=== PATIENT | male | born 1965 | race Caucasian/White ===

== ENCOUNTER 2017-05-10 19:19 | Emergency (ER) | payer MEDICAID, OTHER ==
[~2017-05-10 19:19] MED LIST: ATENOLOL100 MG PO; PRILOSEC20 MG PO; VITAMIN-D1000 IU PO
[2017-05-10 21:15] LABS: PLATELET COUNT 198 x10^3mcL (130-400)
[2017-05-10 21:19] LABS: RED CELL DISTRIBUTION WIDTH 24.6 % (11.5-14.5)
[2017-05-10 21:24] LABS: CALCIUM 8.7 mg/dL (8.5-10.1); CARBON DIOXIDE 25.5 mmol/L (21-32); CHLORIDE SERUM 98 mmol/L (98-107); CREATININE SERUM 0.8 mg/dL (0.7-1.3); GFR1 > 60 mL/min; GLUCOSE SERUM 102 mg/dL (74-106); POTASSIUM SERUM 3.6 mmol/L (3.5-5.1); SODIUM SERUM 136 mmol/L (136-145)
[2017-05-10 21:29] LABS: ALBUMIN 3.5 g/dL (3.4-5.0); ALKALINE PHOSPHATASE 145 U/L (46-116); ALT/SGPT 41 U/L (16-63); AST/SGOT 39 U/L (15-37); BILIRUBIN TOTAL 0.2 mg/dL (0.20-1.00); TOTAL PROTEIN, SERUM 8.5 g/dL (6.4-8.2)
[2017-05-10 21:41] LABS: BAND NEUTROPHIL 2 % (0-10); BASOPHIL 0 % (0-2); MONOCYTE 13 % (0-7); SEGMENTED NEUTROPHILS 60 % (37-75)
[2017-05-10 21:42] LABS: acanthocyte (spur cell) 1+; rbc morphology (normal/abnorm) ABNORMAL (NORMAL); target cell (codocyte) 1+
[2017-05-10 21:43] LABS: PLATELET MORPHOLOGY PLATELETS NORMAL; ovalocyte/elliptocyte 1+; schistocyte (helmet cell) 1+
[2017-05-10 22:36] LABS: microscopic required? NO
[2017-05-10 22:51] LABS: UA SPECIFIC GRAVITY <=1.005 (1.005-1.035); urine erythrocyte NEGATIVE (NEGATIVE)
[2017-05-10 23:15] LABS: AMPHETAMINE QUAL UR NONE DETECTED (NEG <=1000)
[2017-05-11 00:50] VITALS: BP 127/75
== END 2017-05-11 00:50 | disposition home or self-care (01) ==
LOC: ED 19:19
PROVIDERS: Emergency Medicine
DX: S10.96XA Insect bite of unspecified part of neck, initial encounter (principal); I10 Essential (primary) hypertension; F10.10 Alcohol abuse, uncomplicated; Z79.899 Other long term (current) drug therapy; W57.XXXA Bitten or stung by nonvenomous insect and other nonvenomous arthropods, initial encounter; Y93.89 Activity, other specified; Y92.89 Other specified places as the place of occurrence of the external cause; Y99.8 Other external cause status
CPT/HCPCS: 83880; J0696; J7030; J7512

== ENCOUNTER 2018-12-23 18:55 | Inpatient (IN) | payer OTHER ==
[~2018-12-23] VITALS: Ht 180.3 cm; Wt 86.0 kg
[2018-12-23 19:04] VITALS: Ht 180.3 cm; Wt 86.0 kg
--- NOTE | 2018-12-23 19:18 | NUR ---
PT PRESENTS TO THE ED TODAY WITH C/C OF JAUNDICE. PT IS A CHRONIC ALCOHOLIC, REPORTS HIS LAST DRINK WAS X5 HOURS AGO, DRINKS APPROXIMATELY 4 32OZ BEERS REGULARLY. PT REPORTS NOTICING YELLOWING OF SKIN X2 WEEKS AGO, PROGRESSIVELY WORSENING. ABDOMEN MODERATELY DISTENDED BUT SOFT. BILATERAL PITTING EDEMA NOTED TO LOWER EXTREMITIES, WORSE ON RIGHT LOWER EXTREMITY. PT ALSO C/O BLEDDING WITH BMS X3 DAYS. PT IS AAOX4, RESP E/U, SPEAKING IN FULL COMPLETE SENTENCES, NAD NOTED. GIRLFRIEND AND SISTER AT BEDSIDE.
--- NOTE | 2018-12-23 19:20 | NUR ---
MSE COMPLETED BY DR OSHEA.
--- NOTE | 2018-12-23 19:49 | NUR ---
SPOKE WITH WALDEMAR IN PHARMACY, LET HIM KNOW THAT WE DON'T HAVE ALL NECESSARY MEDICATIONS IN [place] TO MAKE BANANA BAG, STATES THAT HE WILL MAKE IT FOR ME.
--- NOTE | 2018-12-23 20:04 | NUR ---
PT MEDICATED PER MD ORDER, PT VERBALIZED UNDERSTANDING OF MEDICATIONS PRIOR TO ADMINISTRATION. GIRLFRIEND AT BEDSIDE. CALL LIGHT IN REACH.
[2018-12-23 20:29] LABS: CALCIUM 7.8 mg/dL (8.5-10.1); CARBON DIOXIDE 21.9 mmol/L (21-32); CHLORIDE SERUM 100 mmol/L (98-107); CREATININE SERUM 0.8 mg/dL (0.7-1.3); GFR1 > 60 mL/min; GLUCOSE SERUM 115 mg/dL (74-106); POTASSIUM SERUM 3.2 mmol/L (3.5-5.1); SODIUM SERUM 134 mmol/L (136-145)
--- NOTE | 2018-12-23 20:31 | NUR ---
CALLED PHARMACY IN [facility] TO STATUS OF BANANA BAG. MASTER AT [facility] IS CURRENTLY OUT OF THIAMINE, DR OSHEA MADE AWARE.
[2018-12-23 20:33] LABS: ALKALINE PHOSPHATASE 282 U/L (46-116); ALT/SGPT 33 U/L (16-63); AST/SGOT 126 U/L (15-37); LIPASE 605 IU/L (73-393); TOTAL PROTEIN, SERUM 7.9 g/dL (6.4-8.2)
--- NOTE | 2018-12-23 20:34 | NUR ---
PER DR OSHEA, HOLD BANANA BAG AT THIS TIME.
[2018-12-23 20:35] LABS: ALBUMIN 1.5 g/dL (3.4-5.0)
--- NOTE | 2018-12-23 20:35 | NUR ---
PER DR OSHEA, HOLD BANANA BAG MED ORDER AT THIS TIME.
[2018-12-23 20:38] LABS: BILIRUBIN TOTAL 15.6 mg/dL (0.20-1.00)
[2018-12-23 20:39] LABS: PLATELET COUNT 187 x10^3mcL (130-400); RED CELL DISTRIBUTION WIDTH 15.9 % (11.5-14.5)
[2018-12-23 20:47] LABS: BAND NEUTROPHIL 3 % (0-10); BASOPHIL 0 % (0-2); MONOCYTE 6 % (0-7); SEGMENTED NEUTROPHILS 76 % (37-75)
[2018-12-23 20:48] LABS: rbc morphology (normal/abnorm) ABNORMAL (NORMAL)
--- NOTE | 2018-12-23 21:09 | NUR ---
PT MEDICATED PER ORDER, PT VERBALIZED UNDERSTANDING OF MEDICATION PRIOR TO ADMINISTRATION. PT SITTING IN GURNEY, GIRLFRIEND AT BEDSIDE, WATCHING TV. RESP E/U, NAD NOTED.
[2018-12-23] MEDS ORDERED: MULTI-VITAMINS1 TAB PO (21:22)
[2018-12-23] MEDS ORDERED: FERROUS SULFAT325 M2 PO (21:22)
[2018-12-23 21:23] LABS: microscopic required? NO
--- NOTE | 2018-12-23 21:27 | NUR ---
PT TO CT SCAN VIA WC, NAD NOTED.
[2018-12-23 21:31] LABS: UA SPECIFIC GRAVITY <=1.005 (1.005-1.035); urine erythrocyte NEGATIVE (NEGATIVE)
--- NOTE | 2018-12-23 22:00 | NUR ---
PT LAYING IN BED, WATCHING TV, AWAKE AND ALERT, RESP E/U, NAD NOTED. GIRLFRIEND AT BEDSIDE.
--- NOTE | 2018-12-23 23:36 | NUR ---
PER DR OSHEA, NEED BLOOD CULTURES PRIOR TO ABX. AWAITING NEW ORDER.
--- NOTE | 2018-12-23 23:58 | NUR ---
IV ZOSYN STARTED PER ORDER POST BLOOD CULTURE DRAW. PT VERBALIZED UNDERSTANDING. PT LAYING IN GURNEY, WATCHING TV, NAD NOTED.
[2018-12-24] VITALS (7 sets, daily range): BP systolic 116–158; BP diastolic 65–84
--- NOTE | 2018-12-24 00:37 | NUR ---
REPORT CALLED TO KEITH KAT ON TELE TO ASSUME CARE FOR PT.
[2018-12-24 00:54] LABS: PLATELET COUNT 192 x10^3mcL (130-400); RED CELL DISTRIBUTION WIDTH 16.1 % (11.5-14.5)
--- NOTE | 2018-12-24 00:55 | NUR ---
RECEIVED PT FROM ED VIA RICARDO. ORIENTED PT TO ROOM AND SURROUNDINGS. IV NOTED TO RAC PATENT AND INTACT. TELE 7 PLACED ON PT READING STA. INSTRUCTED PT ON THE USE OF CALL LIGHT FOR ASSISTANCE. ENDORSED PT TO PRIMARY NURSE JASMYN
[2018-12-24 01:07] LABS: T3 TOTAL 0.78 ng/mL
[2018-12-24 01:15] LABS: SEGMENTED NEUTROPHILS 90 % (37-75)
[2018-12-24 01:16] LABS: BAND NEUTROPHIL 0 % (0-10); BASOPHIL 1 % (0-2); rbc morphology (normal/abnorm) ABNORMAL (NORMAL)
[2018-12-24 01:17] LABS: PLATELET MORPHOLOGY PLATELETS NORMAL
--- NOTE | 2018-12-24 01:22 | NUR ---
PT IS RESTING IN BED. A/O x4. DENIES ANY DISTRESS. ON TELE #7, ST. DENIES ANY CHEST PAIN. EDEMA NOTED ON RLE. LUNGS CLEAR IN ALL FEILDS. ON RA, DENIES ANY SOB. ABD DISTENDED AND SOFT. PT C/O DIARRHEA WITH TRACE OF BLOOD. EXPALINED TO PT A SAMPLE NEEDS TO BED COLLECTED. PT STATED UNDERSTANING. IV ON RAC INTACT AND PATENT. ON SZ PRECAUTION. AT BEDSIDE. BED AT LOWEST SETTING. CALL LIGHT WITHIN REACH. WILL CONTINUE TO MONITOR.
[2018-12-24 01:42] LABS: FREE T4 1.4 ng/dL (0.76-1.46); FREE THYROXINE INDEX 2.6 ug/dL (1.4-4.5); T4(THYROXINE) 6.6 ug/dL (4.7-13.3)
[2018-12-24 01:52] LABS: PHOSPHOROUS 2.8 mg/dL (2.5-4.9)
[2018-12-24 01:57] LABS: CHOLESTEROL/HDL RATIO 12.4
--- NOTE | 2018-12-24 02:15 | NUR ---
PT EYES CLOSED. AROUSED EASILY, DENIES ANY CHEST PAIN. RN CLINICAL QUALITY SHOWS ST 102/MIN.
--- NOTE | 2018-12-24 02:16 | NUR ---
DR. SOTO MADE AWARE OF PTS TROP 0.123.
[2018-12-24 02:19] LABS: AMPHETAMINE QUAL UR NONE DETECTED (See below)
--- NOTE | 2018-12-24 06:36 | NUR ---
PT RESTING IN BED. SLIGHT TREMORS NOTED. IV INTACT AND PATENT. NO ACUTE EVENT OCCURED DURING SHIFT. SZ PRECATUTION IN PLACE. PT HAS URGENCY WHEN VOIDING. DARK YELLOW WITH STRONG ODOR NOTED. BED AT LOWEST SETTING. CALL LIGHT WITHIN REACH. WILL ENRDORSE TO AM NURSE.
--- NOTE | 2018-12-24 07:20 | NUR ---
PT IN LOW FOWLERS, DENIES PAIN, MILD TREMORS TO BUE. PT ALERT, AWAKE, ORIENTEDx4. EFFORTLESS BREATHING ON ROOM AIR. IV PATENT TO rAC#20 INFUSING WELL NS AT 50ML/HR. BED IN LOWEST POSITION, CALL LIGHT WITHIN REACH.
[2018-12-24 07:32] LABS: CALCIUM 7.4 mg/dL (8.5-10.1); CARBON DIOXIDE 21.6 mmol/L (21-32); CHLORIDE SERUM 105 mmol/L (98-107); CREATININE SERUM 0.8 mg/dL (0.7-1.3); GFR1 > 60 mL/min; GLUCOSE SERUM 93 mg/dL (74-106); LIPASE 377 IU/L (73-393); MAGNESIUM 1.6 mg/dL (1.8-2.4); PHOSPHOROUS 2.9 mg/dL (2.5-4.9); POTASSIUM SERUM 3.6 mmol/L (3.5-5.1); SODIUM SERUM 138 mmol/L (136-145)
--- NOTE | 2018-12-24 07:52 | NUR ---
Nutrition Note Nutrition Consult received for severe malnutrition w/ EtOH abuse. Pt admitted with PNA, Pancreatitis per H&P documentation. Pt does not meet high risk criteria per nutrition care policy and standards. Pt will be assessed as moderate risk and initial assessment due 12/27-12/29.
[2018-12-24 09:16] LABS: PLATELET COUNT 195 x10^3mcL (130-400); RED CELL DISTRIBUTION WIDTH 16.1 % (11.5-14.5)
--- NOTE | 2018-12-24 10:14 | NUR ---
MEDICINE TEAM IN TO SEE PT. DISCUSSING PLAN OF CARE. AT BEDSIDE.
--- NOTE | 2018-12-24 12:30 | NUR ---
PT SLEEPING AT MOMENT. EFFORTLESS BREATHING ON ROOM AIR. NO S/S OF PAIN AT MOMENT. CALL LIGHT WITHIN REACH.
[2018-12-24 14:19] LABS: BAND NEUTROPHIL 5 % (0-10); BASOPHIL 0 % (0-2); MONOCYTE 3 % (0-7); SEGMENTED NEUTROPHILS 88 % (37-75)
[2018-12-24 14:20] LABS: PLATELET MORPHOLOGY PLATELETS DECREASED; rbc morphology (normal/abnorm) ABNORMAL (NORMAL); target cell (codocyte) 2+
--- NOTE | 2018-12-24 18:55 | NUR ---
PT IN FOWLERS, SLEEPING AT MOMENT. GENERALIZED JAUNDICE. PT BREATHING EFFORTLESS ON ROOM AIR. IV PATENT TO RAC#20 CALL LIGHT WITHIN REACH.
--- NOTE | 2018-12-24 19:30 | NUR ---
PT A/O x4. ON TELE #[address] DENIES ANY CHEST PAIN OR PRESSURE. PULSES ARE PRESENT. EDEMA NOTED ON RLE. LUNGS CLEAR IN ALL FEILDS. ON RA, DENIES ANY SOB. EQAUL CHEST RISE AND FALL. BOWEL SOUNDS PRESENT. ABD IS DISTENDED BUT SOFT. DENIES ANY ABD PAIN OR DISCOMFORT. PT AWARE OF STOOL SAMPLE NEEDED. SLIGHT TREMORS NOTED ON HANDS. BRUSING NOTED ON LLE AND RUE. PT IS [place]. IV ON RAC INTACT AND PATENT. FLUIDS RUNNING PER EMAR. NO SIGN OF REDNESS OR INFILTRATION NOTED. SZ IN PLACE. BED IS AT LOWEST SETTING. CALL LIGHT WITHIN REACH. WILL CONTINUE TO [facility].
--- NOTE | 2018-12-24 20:50 | NUR ---
PT HAS HIGH TEMP. COOLING MEASURES STARTED. WILL RECHECK TEMP.
--- NOTE | 2018-12-24 21:39 | NUR ---
PT TEMP IS STILL HIGH AT 101. COOLING MEASURES DID NOT WORK WILL GIVE PRN MEDICATION PER EMAR.
--- NOTE | 2018-12-25 01:53 | NUR ---
PT RESTING IN BED WITH BOTH EYES CLOSED. BREATHING EVEN AND UNLBORED. NO SIGN OF DISTRESS NOTED. IV INTACT AND PATENT. BED AT LOWEST SETTING. SZ PRECAUTION IN PLACE. CALL LIGHT WITHIN REACH. WILL CONTINUE TO MONITOR.
[2018-12-25 05:53] VITALS: BP 139/74
--- NOTE | 2018-12-25 06:23 | NUR ---
PT IS RESTING IN A CHAIR. NO ACUTE EVENT OCCURED DURING SHIFT. STILL NO BM. NEW LINEN WAS PROVIDED. PT STILL HAS TREMORS. IV INTACT AND PATENT. DIP UNIT OPERATOR IN ROOM. WILL ENDORSE TO AM NURSE.
[2018-12-25 06:42] LABS: PLATELET COUNT 183 x10^3mcL (130-400)
[2018-12-25 06:51] LABS: RED CELL DISTRIBUTION WIDTH 17.6 % (11.5-14.5)
[2018-12-25 06:55] LABS: CALCIUM 7.8 mg/dL (8.5-10.1); CARBON DIOXIDE 23.9 mmol/L (21-32); CHLORIDE SERUM 106 mmol/L (98-107); CREATININE SERUM 0.8 mg/dL (0.7-1.3); GFR1 > 60 mL/min; GLUCOSE SERUM 94 mg/dL (74-106); LIPASE 437 IU/L (73-393); MAGNESIUM 1.5 mg/dL (1.8-2.4); PHOSPHOROUS 2.7 mg/dL (2.5-4.9); POTASSIUM SERUM 3.3 mmol/L (3.5-5.1); SODIUM SERUM 139 mmol/L (136-145)
--- NOTE | 2018-12-25 07:30 | NUR ---
PT ENDORSE TO ME THIS MORNING. LAYIN IN BED RESTING. AA/O X4 /SZ PREC INPLACE. BREATHING EVEN AND UNLABORED ON RA/ LUNGS CLEAR. TELE 7 NSR NOTED, HR 91. DENIES ANY CP OR PRESSURE. BOWEL SOUNDS ACTIVE IN ALL FOUR QUADS, DENIES ANY ABD PAIN OR DISCOMFORT AT THIS TIME. GEN WEAKNESS NOTED. JAUNDICE NOTED, BRUISES TO LLE AND RUE NOTED. IV TO THE RAC INFUSING AT 50 ML/HR/ NS, NO REDNESS OR SWELLING NOTED. CALL LIGHT IN REACH. BED IN LOW POSITION. WILL CONTINUE PLAN OF CARE.
--- NOTE | 2018-12-25 08:58 | NUR ---
PT C/O LIGHT TREMORS AND FEELING ANXIOUS, MEDICATED PER EMAR WITH ATIVAN. WILL CONTINUE TO [id number].
[2018-12-25 09:15] VITALS: BP 145/76
[2018-12-25 10:48] LABS: ATYPICAL LYMPH 3 %; BAND NEUTROPHIL 8 % (0-10); BASOPHIL 0 % (0-2); MONOCYTE 2 % (0-7); SEGMENTED NEUTROPHILS 82 % (37-75)
[2018-12-25 10:49] LABS: PLATELET MORPHOLOGY PLATELETS DECREASED; rbc morphology (normal/abnorm) ABNORMAL (NORMAL); target cell (codocyte) 1+
--- NOTE | 2018-12-25 12:12 | NUR ---
PT C/O FEELING A BIT ANXIOUS AND FEELS LIKE TREMORS ARE BACK. WILL MEDICATED PER EMAR WITH ATIVAN. WILL CONTINUE TO MONITOR.
[2018-12-25 12:38] VITALS: BP 139/74
--- NOTE | 2018-12-25 12:54 | NUR ---
PT HAS LOW GRADE FEVER 100.2, MEDICATED PER EMAR. COOLING MEASURES APPLIED. WILL CONTINUE TO MONITOR.
--- NOTE | 2018-12-25 17:40 | NUR ---
PT STATING FEELING OF ANXIOUNESS AND TREMORS NOTED TO UPPER EXT. WILL MEDICATED PER EMAR WITH ATIVAN. WILL CONTINUE TO MONITOR. PT GIRLFRIEND AT BEDSIDE.
[2018-12-25 18:06] VITALS: BP 129/69
--- NOTE | 2018-12-25 18:15 | NUR ---
DR. JOHN MADE ARELLANO OF PT SMALL BM WITH BRIGHT DROPS OF BLOOD IN BM. . AWARE OF NOT BEDING ABLE TO SEND STOOL DUE TO IT BEING CONTAMINATED. WILL TRY TO COLLECT NEXT BM. WILL CONTINUE TO MONITOR.
--- NOTE | 2018-12-25 18:40 | NUR ---
NO ACUTE CHANGES AT THIS TIME. NO ACUTE RESP DISTRESS OR SOB NOTED. SLIGHT TREMORS NOTED, MEDICATED PER EMAR. IV TO THE RAC INTACT AND PATENT. NO REDNESS OR SWELLING NOTED. WILL ENDORSE TO INCOMING RN.
--- NOTE | 2018-12-25 20:00 | NUR ---
RECEIVED PT IN BED. ALERT AND ORIENTED. CONFUSED AT TIMES. ABLE TO FOLLOW COMMANDS. DENIES HEADACHE/DIZZNESS. RESP. EVEN AND UNLABORED. ON ROOM AIR, NO ACUTE DISTRESS NOTED. AFEBRILE AND VITAL SIGNS STABLE. SR/ST ON THE MONITOR, DENIES CP OR PRESSURE AT THIS TIME. ABD. SOFT, NON DISTENDED, BS ACTIVE, NO N/V NOTED. NO COMPLAINTS OF ANY DISCOMFORT AT THIS TIME. ON SEIZURE PREC. NO ACTIVITY NOTED . IVF, NS AT 50ML/HR, INTACT AND INFUSING VIA RAC, SITE CLEAR.ASSISTED WITH HS CARE. CALL LIGHT WITHIN REACH. WILL CONTINUE TO MONITOR.
[2018-12-25 20:31] VITALS: BP 130/70
--- NOTE | 2018-12-25 23:43 | NUR ---
DUE MEDS GIVEN ORDERED, LENA/ WELL. CALL LIGHT WITHIN REACH.WILL CONTINUE TO MONITOR.
--- NOTE | 2018-12-26 02:40 | NUR ---
EYES CLOSED, APPEARS ASLEEP, EASILY AROUSABLE. RESP. EVEN AND UNLABORED. NO ACUTE DISTRESS NOTED. CALL LIGHT WITHIN REACH. WILL CONTINUE TO MONITOR.
[2018-12-26 05:36] VITALS: BP 131/77
--- NOTE | 2018-12-26 06:06 | NUR ---
SLEPT WELL. NO SEIZURE ACTIVITY NOTED . RESP. EVEN AND UNLABORED. ON ROOM AIR, NO ACUTE DISTRESS NOTED.AFEBRILE AND VITAL SIGNS STABLE. DUE MEDS GIVEN ORDERED, LENA. WELL. IVF INTACT AND INFUSING WELL, SITE CLEAR. INCONT. OF URINE, LINEN CHANGED, KEPT CLEAN AND DRY. NO BM NOTED . WILL CONTINUE TO MONITOR.
[2018-12-26 06:41] LABS: CALCIUM 7.7 mg/dL (8.5-10.1); CARBON DIOXIDE 22.7 mmol/L (21-32); CHLORIDE SERUM 105 mmol/L (98-107); CREATININE SERUM 1.1 mg/dL (0.7-1.3); GFR1 > 60 mL/min; GLUCOSE SERUM 102 mg/dL (74-106); LIPASE 201 IU/L (73-393); MAGNESIUM 1.2 mg/dL (1.8-2.4); PHOSPHOROUS 2.5 mg/dL (2.5-4.9); POTASSIUM SERUM 3.4 mmol/L (3.5-5.1); SODIUM SERUM 137 mmol/L (136-145)
[2018-12-26 07:35] LABS: PLATELET COUNT 179 x10^3mcL (130-400)
[2018-12-26 07:40] LABS: RED CELL DISTRIBUTION WIDTH 17.5 % (11.5-14.5)
--- NOTE | 2018-12-26 08:33 | NUR ---
REPORT TAKEN FROM SEARCH ENGINE MARKETING SPECIALIST NURSE, PT IS RESTING COMFORTABLY AT THIS TIME. PT DENIED ABD PAIN, OR CONSTAPATION. PT ALSO DENIED N/V. WILL CONTINUE TO MONITOR, AND TREAT PER CARE PLAN.
--- NOTE | 2018-12-26 09:20 | NUR ---
AM ROUNDS DONE BY DR. GARCIA AND MEDICAL TEAM. PLAN OF CARE DISCUSSED WITH PT AND SPOUSE. CONCERNS ADRESSED AND QUESTIONS ANSWERED.
[2018-12-26 09:43] LABS: BAND NEUTROPHIL 20 % (0-10); BASOPHIL 0 % (0-2); MONOCYTE 6 % (0-7); SEGMENTED NEUTROPHILS 68 % (37-75)
[2018-12-26 09:45] LABS: ovalocyte/elliptocyte 1+; rbc morphology (normal/abnorm) ABNORMAL (NORMAL); target cell (codocyte) 1+
[2018-12-26 09:46] LABS: PLATELET MORPHOLOGY LARGE PLATELET SEEN; tear drop cell (dacryocyte) 1+
[2018-12-26 09:59] VITALS: BP 118/64
[2018-12-26 13:28] VITALS: BP 140/83
[2018-12-26 17:36] VITALS: BP 121/67
--- NOTE | 2018-12-26 19:06 | NUR ---
PT REMAINS IN NO DISTRESS, RESTING IN BED. FOEGETFUL AT TIMES. NO C/O PAIN OR DISCOMFORT AT THIS TIME. SAFETY MEASURES MAINTAINED. NO ACTIVE SZ ACTIVITIES. IVF INFUSING WELL AND SITE CLEAR.SIDE RAILS UP X3 AND BED ALARM ON. PT REMINDED TO USE CALL LIGHT WHEN GETTING OOB. CALL LIGHT WITHIN REACH. WILL BE ENDORSED TO INCOMING SHIFT.
--- NOTE | 2018-12-26 19:08 | NUR ---
NURSING CO-SIGN THE DOCUMENTATION ENTERED BY THE RN ELDER HAS BEEN REVIEWED. REVIEWED/CO-SIGNED BY: Isabel Chen DOCUMENTATION DONE BY:THEO LEWIS
--- NOTE | 2018-12-26 20:03 | NUR ---
RECEIVED PT IN BED, RESTING QUIETLY. ALERT AND ORIENTED. CONFUSED AT TIMES. ABLE TO FOLLOW COMMANDS. RESP. EVEN AND UNLABORED. ON ROOM AIR, NO ACUTE DISTRESS MOTED. AFEBRILE AND VITAL SIGNS STABLE. SR ON THE MONITOR, DENIES CHEST PAIN OR ANY DISCOMFORT AT THIS TIME. IVF, NS AT 50ML/HR, INTACT AND INFUSING VIA RAC, SITE CLEAR. ABD. DISTENDED, BS ACTIVE, NO N/V NOTED. CALL LIGHT WITHIN REACH. WILL CONTINUE TO MONITOR.
[2018-12-26 20:26] VITALS: BP 131/73
--- NOTE | 2018-12-27 02:00 | NUR ---
MAG LUGO INFUSED, LENA. WELL. IVF INTACT AND INFUSING WELL, SITE CLEAR. RESP. EVEN AND UNLABORED. NO ACUTE DISTRESS NOTED. WILL CONTINUE TO MONITOR.
--- NOTE | 2018-12-27 02:41 | NUR ---
ASLEEP, EASILY AROUSABLE. RESP. EVEN AND UNLABORED. NO ACUTE DISTRESS NOTED. WILL CONTINUE TO MONITOR.
[2018-12-27 05:30] VITALS: BP 123/75
--- NOTE | 2018-12-27 06:05 | NUR ---
AFEBRILE AND VITAL SIGNS STABLE. RESP. EVEN AND UNLABORED. ON ROOM AIR, NO ACUTE DISTRESS NOTED . DUE MEDS GIVEN ORDERED, LENA. WELL. NO N/V NOTED. NO SEIZURE ACTIVITY NOTED. IVF INTACT AND INFUSING WELL, SITE CLEAR. WILL CONTINUE TO MONITOR.
[2018-12-27 07:00] LABS: ALKALINE PHOSPHATASE 185 U/L (46-116); ALT/SGPT 20 U/L (16-63); AST/SGOT 68 U/L (15-37); CARBON DIOXIDE 20.8 mmol/L (21-32); CHLORIDE SERUM 106 mmol/L (98-107); CREATININE SERUM 0.9 mg/dL (0.7-1.3); GFR1 > 60 mL/min; GLUCOSE SERUM 91 mg/dL (74-106); MAGNESIUM 2.4 mg/dL (1.8-2.4); PHOSPHOROUS 2.8 mg/dL (2.5-4.9); POTASSIUM SERUM 3.4 mmol/L (3.5-5.1); SODIUM SERUM 136 mmol/L (136-145); TOTAL PROTEIN, SERUM 6.5 g/dL (6.4-8.2)
[2018-12-27 07:04] LABS: BILIRUBIN TOTAL 15.82 mg/dL (0.20-1.00)
--- NOTE | 2018-12-27 07:17 | NUR ---
RECEIVED PATIENT RESTING COMFORTABLY IN BED WITH FAMILY AT BEDSIDE. IV TO RAC IS PATENT AND INFUSING NS @ 50 ML/HR. NO REDNESS OR PAIN. TELE # [address] PT DENIES CHEST PAIN. PT ON ROOM AIR. NO C/O SOB AND NO DISTRESS NOTED. ALL QUESTIONS AND CONCERNS ADDRESSED.
[2018-12-27 09:11] VITALS: BP 126/70
--- NOTE | 2018-12-27 09:13 | NUR ---
PT HAVING ULTRASOUND OF THE CAROTID.
--- NOTE | 2018-12-27 11:39 | NUR ---
PT AMBULATING IN THE MACK WITH PT.
[2018-12-27 12:17] LABS: ATYPICAL LYMPH 3 %; BAND NEUTROPHIL 5 % (0-10); BASOPHIL 0 % (0-2); MONOCYTE 3 % (0-7); SEGMENTED NEUTROPHILS 85 % (37-75)
[2018-12-27 12:19] LABS: PLATELET MORPHOLOGY PLATELETS DECREASED; rbc morphology (normal/abnorm) ABNORMAL (NORMAL); target cell (codocyte) 2+
[2018-12-27 13:00] LABS: PLATELET COUNT 126 x10^3mcL (130-400); RED CELL DISTRIBUTION WIDTH 17.8 % (11.5-14.5)
[2018-12-27 13:29] VITALS: BP 111/64
--- NOTE | 2018-12-27 13:32 | NUR ---
Initial Nutrition Assessment- Dx: PNA, Pancreatitis PMHx: HTN, EtOH abuse w/ possible liver cirrhosis PSHx: splenectomy Labs: (12/27) K 3.4 L, ALB 1 L, Ca 8 L, AST 68 H, ALP 185 H, TG 277 H(12/23), WBC 33.3 H Meds: ativan, colace, iron, folic acid, protonix IV, theragran, VIT B, VIT D, zofran, zosyn Diet: Regular diet starting lunch today (12/27) PO Intake: (12/27) 100% of breakfast on clear liquid diet Ht: 5' Wt: 190 lb, 86 kg BMI: 26.4 kg/m2 (Overweight) IBW: 172 lb, 78 kg %IBW: 110 UBW: 185 lb Age: 53 yrs old Food Allergies: NKFA Skin: ecchymosis to RUE and LLE Avery: 19 Edema: trace edema to BLE GI: abd is soft and distended w/ active bowel sounds. Last BM 12/26/18 Per H&P, a 53yoM with PMH HTN and EtOH abuse with possible liver cirrhosis who presented to the ED c/o gradual-onset worsening abdominal distension with associated urinary frequency and jaundice x2 weeks. The pt also complained of infrequent diarrhea with associated blood-tinged tissue when he wiped. Pt stated these complaints have occurred in the past, but he was prompted to present to the ED by his sister and his partner due to worsening condition. Pt is a chronic alcoholic, drinks at least a 6 pack of beer daily, and admitted to multiple instances of sobriety but has always relapsed. He also admitted past diagnosis of esophageal varices. Per providers progress notes, Patient is feeling better today. He requested regular diet instead of liquid diet. It was discussed with family that the WBC are still increasing despite anitbiotic regimen. We will be getting an indium scan on Sunday to determine where a possible infection can be found. A negative result makes us consider cancer. There is a family history of colon cancer. GI has been consulted. PT eval was ordered so the patient can walk around and get out of bed. Family is aware of the plan and had no further questions. 12/26/18 US Abd w/ impression: 1. Fatty hepatomegaly, 2. Gallbladder wall thickening may represent gallbladder disease vs chronic liver disease, 3. Small ascites and R pleural effusion. Pt seen sitting up in bed at time of RD visit, seems a bit confused. Partner at bedside. Pt appeared jaundiced in color. He c/o diarrhea for months now d/t EtOH detox. Diet was advanced for lunch from clear liquid diet to regular diet per pt request. Problem with: N: no V: no D: yes C: no Problems with: Chewing: no Swallowing: no Current appetite: good Recent wt change: none %wt change: n/a Vitamin/Supplement use: VIT D, MVI, iron Special diet at home: none Physical activity: none, w/ generalized weakness, unsteady gait Education: pt was advised to increase fluid intake for replenishment from diarrhea. Nutrition therapy for pancreatitis will be provided on next RD visit. Estimated Nutritional Needs Based on actual body weight 86 kg Energy: 2150-2580kcal/d (25-30 kcal/kg-for acute pancreatitis) Protein: 103-138 g/d (1.2-1.6 g/kg for liver cirrhosis) Fluid: 2150-2580ml/d (1 ml/kcal-fluid balance) or per doctor Nutrition Diagnosis 1. Increased risk for malnutrition related to chronic illness as evidenced by diarrhea x 1 month and family's report of generalized weakness. 2. Altered nutrition related labs related to possible liver cirrhosis as evidenced by elevated AST and ALP values and Hx of EtOH abuse. Intervention 1. Recommend Low Fat diet. 2. If PO intake <75% by next nutritional assessment, consider adding Ensure High Protein BID which will provide additional 320 kcal, 32 gm protein daily. Monitor/Evaluate Goal: PO intake at least 75% of estimated needs Monitor: PO intake, Labs, GI function F/U in 3-5 days as moderate risk 2/4-2/6
[2018-12-27 17:39] VITALS: BP 115/64
--- NOTE | 2018-12-27 19:37 | NUR ---
REPORT GIVEN TO FLIP PARKER. PT RESTING COMFORATBLY IN BED ALL QUESTIONS AND CONCERNS ADDRESSED. ENDORSED TO FLIP THAT DR AVALOS WAS PAGED TO NOTIFY OF BLOODY BM BUT HAS NOT CALLED BACK.
--- NOTE | 2018-12-27 19:44 | NUR ---
ALERT WITH PERIODS OF FORGETFULNESS. SKIN WARM AND DRY TO TOUCH. LUNGS CLEAR UON AUSCULTATION/ RT PROTCOL ORDEREED. DENIES ANY PAIN/DISCOMFORT. NOTED TO HAVE BLUISH DISCOLORATION TO LLE/RLE, OPEN TO AIR. ON TELE# 7 WITH SR AT 78-86/min. PLACED CALL LIGHT WITHIN REACH, INSTRUCTED TO CALL FOR ANY ASSISTANCE NEEDED AND VERBALIZED UNDERSTANDING.
[2018-12-27 20:40] VITALS: BP 127/69
--- NOTE | 2018-12-27 22:00 | NUR ---
ALL DUE MEDICATIONS GIVEN AND WELL TOLERATED. ORAL FLUIDS GIVEN ,NEEDS VERBAL CUES FOR SAFETY.
--- NOTE | 2018-12-28 00:15 | NUR ---
PT APPARENTLY WITH PERIODS OF AGITATION/RESTLEASSNESS, TRIED TO GET OUT OF BED WITHOUT ASKING FOR ASSSISTANCE. ATIVAN 1MG IVP PRN MEDICATION.
--- NOTE | 2018-12-28 02:15 | NUR ---
APAPRENTLY ATIVAN IV NOT EFFECTIVE. KEEPS ON TRYING GETTING OUT OF BED. BED IN LOWEST POSITION. FREQUENT VISUAL CHECKS FOR SAFETY. NORCO 7/325MG PO GIVEN FOR GENERALIZED BODY PAIN ON SCALE 6/10.
--- NOTE | 2018-12-28 03:30 | NUR ---
IV AT THE RCA PULLED OUT BY PATIENT. WITH SLIGHT BLEEDING. PRESSURE DRESSING APPLIED. IV RESTARTED AT THE LFA USING G#22 WITH GOOD BLOOD FLOW RETURN . CONTINUES ON IVF NS AT 50ML/HR .
[2018-12-28 05:43] VITALS: BP 110/63
--- NOTE | 2018-12-28 06:16 | NUR ---
IV AT THEM LFA REMOVED BY PT, PT VERY CONFUSED AT THIS TIME,, EXPRESSING THE DESIRE TO GO HOME. EXPLAINED TO PATIENT TO WAIT FOR MD FOR ORDERS , EMOTIONAL SUPPORT GIVEN, PT ABLE TO CALM DOWN. IV RESTRATED AT THE RFA USING G#22 WITH GOOD BLOOD FLOW RETURN. PT TOLERATED PROCEDURE WELL.
--- NOTE | 2018-12-28 06:19 | NUR ---
CONTINUES ON ATB IVPB FOR MANAGEMENT OF ELEVATED WBC, NO ADVERSE REACTION NOTED. TOTAL ASSISTANCE WITH ADL FUNCTION. KEPT CLEAN AND DRY. ALL NEEDS ATTENDED.
[2018-12-28 06:56] LABS: PLATELET COUNT 234 x10^3mcL (130-400); RED CELL DISTRIBUTION WIDTH 18.5 % (11.5-14.5)
[2018-12-28 07:14] LABS: CARBON DIOXIDE 20.5 mmol/L (21-32); CHLORIDE SERUM 107 mmol/L (98-107); CREATININE SERUM 1.2 mg/dL (0.7-1.3); GFR1 > 60 mL/min; GLUCOSE SERUM 102 mg/dL (74-106); PHOSPHOROUS 2.7 mg/dL (2.5-4.9); SODIUM SERUM 138 mmol/L (136-145)
--- NOTE | 2018-12-28 08:00 | NUR ---
REASSESSMENT DONE, PT ALERT, ORIENTED TO PERSON, , DATE. S1S2 ON AUSCULTATION, DENIES CHEST PAIN. +2 EDEMA BLE. GENERALIZED WEAKNESS. SIGNIFICANT OTHER AT BEDSIDE. BED IN LOWEST POSITION, CALL LIGHT WITHIN REACH. WILL CONTINUE TO MONITOR.
[2018-12-28 08:25] VITALS: BP 116/69
[2018-12-28 09:31] LABS: ATYPICAL LYMPH 1 %; BAND NEUTROPHIL 3 % (0-10); BASOPHIL 0 % (0-2); MONOCYTE 9 % (0-7); SEGMENTED NEUTROPHILS 83 % (37-75)
[2018-12-28 09:33] LABS: PLATELET MORPHOLOGY PLATELETS NORMAL; rbc morphology (normal/abnorm) ABNORMAL (NORMAL)
[2018-12-28 10:40] VITALS: BP 116/69
--- NOTE | 2018-12-28 11:46 | NUR ---
PHYSICAL THERAPY SESSION COMPLETED. PT TOLERATED WELL. AMBULATED ABOUT 200FT WITH FWW. PT BACK IN BED. CALL LIGHT WITHIN REACH. WILL CONTINUE TO MONITOR.
[2018-12-28 13:35] VITALS: BP 114/69
--- NOTE | 2018-12-28 14:23 | NUR ---
COMFORT PROVIDED. IV INFUSING WELL TO RFA#22. SIGNIFICANT OTHER AT BEDSIDE. CALL LIGHT WITHIN REACH.
--- NOTE | 2018-12-28 17:46 | NUR ---
PT TOLERATING DIET WELL. SITTING AT SIDE OF BED. DENIES ANY PAIN AT MOMENT. EFFORTLESS BREATHING ON ROOM AIR. GENERALIZED JAUNDICE WITH ABDOMINAL DISTENTION AND FIRMNESS. IV INFUSING WELL TO RFA #22. BED IN LOWEST POSITION, CALL LIGHT WITHIN REACH. SIGNIFICANT OTHER AT BEDSIDE.
[2018-12-28 18:00] VITALS: BP 117/73
--- NOTE | 2018-12-28 19:39 | NUR ---
AWAKE, ALERT, WATCHING TV, ORIENTED TO NAME, PLACE, TIME AND SITUATION. SPEECH CLEAR AND APPROPRIATE. BREATHING EVEN AND UNLABORED ON ROOM AIR. HOB ELEVATED 30 DEG. IVF OF NS AT 50ML/HR INFUSING TO RIGHT FOREARM IV. DENIES HAVING PAIN. PLACED BED ALARM ON.
[2018-12-28 20:56] VITALS: BP 120/68
--- NOTE | 2018-12-28 23:41 | NUR ---
eyes closed, breathing even and unlabored on room air. hob kept elevated 30 deg. call light within easy reach. bed alarm on. sinus rhythm on tele, hr 80/min. no pvcs noted.
--- NOTE | 2018-12-29 05:57 | NUR ---
eyes closed, easily awakened. able to make needs known. bed bath was administered. gown and linen changed. voided 500ml of very dark urine. sinus rhythm on tele, hr 79/min. ivf of ns infusing at 50ml/hr. iv site free from redness or swelling. bed alarm on. hob kept elevated 30 deg. feet kept elevated with pillow.
[2018-12-29 06:01] VITALS: BP 120/74
--- NOTE | 2018-12-29 07:20 | NUR ---
PT SLEEPING, EASILY AROUSABLE, DENIES PAIN AT MOMENT. CLEAR SPEECH. ALERT, ORIENTED. IV PATENT TO RFA#22. EFFORTLESS BREATHING ON ROOM AIR. BED IN LOWEST POSITION, CALL LIGHT WITHIN REACH. WILL CONTINUE TO MONITOR.
[2018-12-29 07:26] LABS: CARBON DIOXIDE 19.7 mmol/L (21-32); CHLORIDE SERUM 108 mmol/L (98-107); CREATININE SERUM 1.1 mg/dL (0.7-1.3); GFR1 > 60 mL/min; GLUCOSE SERUM 152 mg/dL (74-106); MAGNESIUM 2.1 mg/dL (1.8-2.4); PHOSPHOROUS 3.3 mg/dL (2.5-4.9); POTASSIUM SERUM 3.5 mmol/L (3.5-5.1); SODIUM SERUM 139 mmol/L (136-145)
[2018-12-29 08:11] LABS: PLATELET COUNT 266 x10^3mcL (130-400)
[2018-12-29 08:30] VITALS: BP 111/69
[2018-12-29 08:30] LABS: RED CELL DISTRIBUTION WIDTH 17.8 % (11.5-14.5)
[2018-12-29 11:49] LABS: BAND NEUTROPHIL 3 % (0-10); BASOPHIL 0 % (0-2); MONOCYTE 1 % (0-7); SEGMENTED NEUTROPHILS 93 % (37-75)
[2018-12-29 11:50] LABS: PLATELET MORPHOLOGY PLATELETS DECREASED; rbc morphology (normal/abnorm) ABNORMAL (NORMAL)
[2018-12-29 13:00] VITALS: BP 111/60
--- NOTE | 2018-12-29 13:35 | NUR ---
PT TOLERATED LUNCH WELL. DENIES PAIN, ALERT, AWAKE, RESPONSIVE TO COMMANDS. EFFORTLESS BREATHING ON ROOM AIR. IV INFUSING WELL. CALL LIGHT WITHIN REACH.
--- NOTE | 2018-12-29 17:27 | NUR ---
PT IN FOWLERS, PROVIDED COMFORTABLE ENVIRONMENT. PT AWAKE, ALERT, ORIENTED x4. PT DENIES PAIN AT MOMENT. GENERALIZED JAUNDICE. ABDOMEN DISTENDED/FIRM. IV INFUSING WELL TO RFA#22. BED IN LOWEST POSITION, CALL LIGHT WITHIN REACH.
[2018-12-29 17:30] VITALS: BP 109/60
--- NOTE | 2018-12-29 19:29 | NUR ---
SHIFT REASSESSMENT DONE.PATIENT ALERT AND ORIENTED X3.BREATHING EASY.GEN WEAKNESS,FALL PRECAUTION.ASSIST FWW,PHYSICAL THERAPY ORDERED.NS AT 50 CC/ HOUR RFA.INTACT.PATIENT VERBALIZED WITH NURSES ON INTIAL NURSING ROUNDS.TELE 7 SR.REPORT FROM DAYSHIFT,INDIUM SCAN,NPO AFTER MIDNIGHT.DISTENDED ABD NOTED.VOIDING,URINAL AT BEDSIDE.2+ EDEMA ANKLES NOTED.CALL LIGHT IN REACH,BED ALARM PUT ON FOR SAFETY.
--- NOTE | 2018-12-29 20:57 | NUR ---
ALL SCHEDULE MEDS GIVEN TONIGHT.WILL GIVE LIBRIOM AT 2200.
[2018-12-29 21:00] VITALS: BP 111/61
--- NOTE | 2018-12-29 22:28 | NUR ---
COUGH SYRUP GIVEN,NEW ORDER TONIGHT.
--- NOTE | 2018-12-29 23:38 | NUR ---
REPORT FROM DAY SHIFT HAVE BLOODY STOOL,NOT ABLE TO SEE IT,BERNARDO ZHONG SAYS HAD BLOODY BM.REMINDED PHP PROGRAMMER TO CALL RN WHEN HE GO AGAIN,TO SEE BLOODY STOOL.
--- NOTE | 2018-12-30 04:49 | NUR ---
PATIENT HAS NO MAJOR CHANGES THIS SHIFT,INDIUM SCAN THIS AM.IVF INFUSING WITHOUT ANY INCIDENT.
[2018-12-30 04:58] VITALS: BP 112/61
--- NOTE | 2018-12-30 05:59 | NUR ---
I AND O MEASURED.NO MAJOR DISTRESS.HOLD BREAKFAST UNTIL INDIUM SCAN DONE.BRP,ASSIST,UNSTEADY GAIT.CALL LIGHT IN REACH.
[2018-12-30 06:35] LABS: CALCIUM 8.1 mg/dL (8.5-10.1); CARBON DIOXIDE 20.8 mmol/L (21-32); CHLORIDE SERUM 108 mmol/L (98-107); CREATININE SERUM 1.3 mg/dL (0.7-1.3); GFR1 > 60 mL/min; GLUCOSE SERUM 141 mg/dL (74-106); MAGNESIUM 2.1 mg/dL (1.8-2.4); PHOSPHOROUS 3.3 mg/dL (2.5-4.9); SODIUM SERUM 140 mmol/L (136-145)
[2018-12-30 06:40] LABS: PLATELET COUNT 297 x10^3mcL (130-400)
[2018-12-30 07:24] LABS: RED CELL DISTRIBUTION WIDTH 17.9 % (11.5-14.5)
--- NOTE | 2018-12-30 07:30 | NUR ---
PT ENDORSE TO ME THIS MORNING. LAYING IN BED RESTING. AA/O X2 NAME AND PLACE. BREATHING EVNEN AND UNLABORED ON RA, NO ACUTE RESP DISTRESS OR SOB NOTED. TELE 7 SR NOTED, HR 82, DENIES ANY CP OR PRESSURE. REMAINS NPO, PENDING INDIUM SCAN THIS AM. BOWEL SOUNDS ACTIVE IN ALL FOUR QUADS, ABD DISTENDED. LAST BM 2/3. VOIDS FREELY. URINAL AT BEDSIDE. UNSTEADY, AMB WITH ASSIST, GEN WEAKNESS, BED ALARM ON. IV TO THE RFA INTACT AND PATENT, NO REDNESS OR SWELLING NOTED. CALL LIGHT IN REACH. BED IN LOW POSITION/BY NURSING STATION /WILL CONTINUE PLAN OF CARE.
--- NOTE | 2018-12-30 08:00 | NUR ---
DR. AVALOS MADE AWARE OF WBC 33.9 WILL CONTINUE TO MONITOR.
[2018-12-30 09:40] VITALS: BP 109/64
[2018-12-30 09:50] VITALS: BP 100/55
[2018-12-30 10:54] LABS: BAND NEUTROPHIL 17 % (0-10); BASOPHIL 0 % (0-2); MONOCYTE 6 % (0-7); PLATELET MORPHOLOGY LARGE PLATELET SEEN; SEGMENTED NEUTROPHILS 75 % (37-75); burr cell (echinocyte) 1+; rbc morphology (normal/abnorm) ABNORMAL (NORMAL); target cell (codocyte) 2+; tear drop cell (dacryocyte) 1+
[2018-12-30 12:32] VITALS: BP 113/63
--- NOTE | 2018-12-30 14:20 | NUR ---
PT SAT PATIENT UP IN A CHAIR FOR LUNCH/ TOLERATED WELL. ASSISTED PT BACK TO BED. DENIES ANY SOB OR DISCOMFORT. GIRLFRIEND AT BEDSIDE. WILL CONTINUE PLAN OF CARE.
[2018-12-30 16:26] VITALS: BP 118/68
--- NOTE | 2018-12-30 18:28 | NUR ---
PT LAYING IN BED RESTING. GIRLFIREND AT BEDSIDE. TOLERATED 100% OF HIS DINNER. DENIES ANY SOB OR DISCOMFORT AT THIS TIME. CALL LIGHT IN REACH. BED IN LOW POSITION/ BY NURSING STATION, BED ALARM ON. WILL ENDORSE TO INCOMING RN.
--- NOTE | 2018-12-30 19:25 | NUR ---
AOX3-4. TELE #7, SR. LUNGS CLEAR ON RA. PULSES PALPABLE. EDEMA TO BLE. BOWEL SOUNDS ACTIVE, LOOSE BM'S. ABD DISTENDED. VOIDS FREELY, URINE BRIGHT YELLOW. GENERALIZED WEAKNESS NOTED. JAUNDICED, SKIN WARM/DRY. DENIES PAIN. IV TO RFA, PATENT AND INFUSING. K: 3.0, DR. GERARD NOTIFIED VIA [employer]. SEIZURE PRECAUTIONS IN PLACE. BED IN LOWEST POSITION, 2 SIDE RAILS UP, CALL LIGHT IN REACH. INSTRUCTED TO CALL FOR ASSISTANCE.
[2018-12-30 20:26] VITALS: BP 122/67
[2018-12-31] VITALS (7 sets, daily range): BP systolic 114–133; BP diastolic 59–71
--- NOTE | 2018-12-31 01:30 | NUR ---
PT CONFUSED AT THIS TIME. ORIENTED TO SITUATION AND SURROUNDINGS NEEDED. NO ACUTE DISTRESS NOTED. WILL CONTINUE TO MONITOR.
[2018-12-31 06:20] LABS: PLATELET COUNT 305 x10^3mcL (130-400)
--- NOTE | 2018-12-31 06:33 | NUR ---
PT EXPERIENCED PERIODS OF CONFUSION OVERNIGHT. ORIENTED TO SURROUNDING AND SITUATION NEEDED. NO COMPLAINTS, CALM AND COOPERATIVE WITH CARE. NO ACUTE DISTRESS NOTED. NO ACUTE CHANGES. WILL ENDORSE TO ONCOMING RN.
[2018-12-31 06:43] LABS: CALCIUM 8.3 mg/dL (8.5-10.1); CARBON DIOXIDE 20.7 mmol/L (21-32); CHLORIDE SERUM 108 mmol/L (98-107); CREATININE SERUM 1.1 mg/dL (0.7-1.3); GFR1 > 60 mL/min; GLUCOSE SERUM 136 mg/dL (74-106); MAGNESIUM 2.2 mg/dL (1.8-2.4); PHOSPHOROUS 3.2 mg/dL (2.5-4.9); SODIUM SERUM 140 mmol/L (136-145)
[2018-12-31 06:52] LABS: RED CELL DISTRIBUTION WIDTH 17.7 % (11.5-14.5)
--- NOTE | 2018-12-31 06:54 | NUR ---
WBC 37.4, DR. AVALOS AWARE
[2018-12-31 06:57] LABS: POTASSIUM SERUM 2.8 mmol/L (3.5-5.1)
--- NOTE | 2018-12-31 07:30 | NUR ---
PT ENDORSE TO ME THIS MORNING. SITTING UP IN BED/ AA/O X4 GIRL FRIEND AT BED SIDE. BREATHING EVEN AND UNLABORED ON RA. DENIES ANY SOB OR DISCOMFORT. TELE 21 SR NOTED, DENIES ANY CP OR PRESSURE. VOIDS FREELY/ URINAL AT BEDSIDE. GEN WEAKNESS/ KNOWS TO CALL FOR ASSIST. IV TO THE RAC INFUSING AT 100 ML/HR OF NS, NO REDNESS OR SWELLING NOTED. CALL LIGHT IN REACH. BED IN LOW POSITION, BED ALARM ON/ BY NURSING STATION.
[2018-12-31 12:51] LABS: BAND NEUTROPHIL 5 % (0-10); BASOPHIL 0 % (0-2); SEGMENTED NEUTROPHILS 95 % (37-75)
[2018-12-31 12:52] LABS: rbc morphology (normal/abnorm) ABNORMAL (NORMAL)
[2018-12-31 12:53] LABS: PLATELET MORPHOLOGY PLATELETS NORMAL
--- NOTE | 2018-12-31 13:45 | NUR ---
PT TOLERATED 100% OF HIS LUNCH, DENIES ABD PAIN OR DISCOMFORT. DENIES ANY SOB AT THIS TIME. REMAINS ON RA, TOLERATING WELL. WILL CONTINUE PLAN OF CARE.
--- NOTE | 2018-12-31 14:14 | NUR ---
Follow-Up Nutrition Assessment Dx: PNA, Pancreatitis Labs: (12/31) Na 140, K 2.8L, BG 136H, BUN 27H, Cr 1.1, Ca 8.3L, P 3.2, WBC 37.4H, H/H 13.5/40L Meds: Cephulac, Colace, Ferrous sulfate, Folic acid, Levaquin, Libirum, KCl, Protonix, Prilosec, Robitussin, NSIV, Solu-Medrol, Tenormin, Theragran, Tylenol, Vit B1, Vit D, Zofran, Zosyn Diet: Regular PO Intake: (12/31) B: 75% (12/30) L: 90% B/D: 100% (12/29) all meals 100% x 3 Wt: 189# (86 kg) Skin: Intact, jaundiced throughout body Avery: 19 Edema: +2 to BLE GI: Last BM x 2 (12/31) Per provider progress notes, no acute events overnight. Indium scan was conducted on (12/30) with results pending at this time. Depending on results, pt. may undergo bone marrow biopsy or peripheral smear per provider notes. Pt. laying in bed during visit and endorses excellent, improved appetite since admission without GI distress associated with regular diet. +loose stools likely d/t lactulose. Pt. appears severely jaundiced with discoloration of the face and sclera. Provided verbal acute pancreatitis education for F/U as requested by RD on previous assessment. Pt. currently asymptomatic at this time without GI distress. Emphasized the importance of a low fat and low residue diet when pt. is experiencing an acute flare up episode to minimize abdominal pain. Declined NCM handouts during visit. Verbalized food preferences; will update on Comput[employer]. Estimated Nutritional Needs Based on actual body weight 86 kg: No changes from previous assessment. Energy: 8982-4095 kcal/d (25-30 kcal/kg- acute pancreatitis) Protein: 103-130 g/d (1.2-1.6 g/kg)-Liver cirrhosis Fluid: 5431-4253 ml/d (1 ml/kcal-fluid balance) or per doctor Nutrition Diagnosis 1. Malnutrition r/t chronic illness AEB pt. reports of having diarrhea x 1 month and family's reports of generalized weakness. (ongoing) 2. Altered nutrition related laboratory values r/t hx liver cirrhosis 2/2 ETOH abuse AEB elevated liver panel labs AST 68 and ALT 185H (ongoing). Intervention/RD recommendations 1. Continue regular diet as ordered and as tolerated. Update food preferences via computrition, and will best provide as able. 2. If PO intake decreases to <75% of estimated calorie and protein needs, will recommend ONS for supplementation. Monitor/Evaluate Goal: PO intake at least 75% of estimated needs (met) New goal: PO intake at least 75% of estimated needs Monitor: PO intake, Labs, GI function, diet tolerance F/U in 3-5 days as moderate risk (01/03-01/05)
--- NOTE | 2018-12-31 14:20 | NUR ---
PHYSIAL THERAPY AT BEDSIDE WORKING WITH PT/ AMB PT. WILL CONTINUE TO MONITOR.
--- NOTE | 2018-12-31 17:58 | NUR ---
PT SITTING UP IN BED RESTING. GIRL FRIEND AND FAMILY AT BEDSIDE. NO ACUTE DISTRESS OR SOB NOTED. ENJOYING HIS DINNER AT THIS TIME. WILL CONTINUE PLAN OF CARE.
--- NOTE | 2018-12-31 18:42 | NUR ---
NO ACUTE CHANGES AT THIS TIME. NO ACUTE RESP DISTRESS OR SOB NOTED. ASSISTED PT TO BATHROOM, WITH KILN PULLER ASSISTANCE/ PT VERY UNSTEADY. EDUCATED PT AND GIRLFRIEND WE NEED TO USE BEDPAN UNTIL PT WORKS WITH PT AGAIN, THEY BOTH AGREED. IV TO THE RFA INTACT AND PATENT. NO REDNESS OR SWELLING NOTED. WILL ENDORSE TO INCOMING RN.
--- NOTE | 2018-12-31 20:20 | NUR ---
PATIENT RECEIVED AWAKE, ALERT, ORIENTED X3, CONFUSED AT TIMES. RESPIRATION EVEN AND UNLABORED, ON ROOM AIR, ON RT PROTOCOL. ONGOING 0.9% NS AT 50 CC/HR INFUSING WELL AT THE RIGHT FOREARM. POSITIVE +2 EDEMA TO ANKLES AND RIGHT HAND SWELLING. ABDOMEN DISTENDED, LBM 12/31/18. INCONTINENT OF URINE. GENERALIZED WEAKNESS, UNSTEADY GAIT, AMBULATES WITH ASSIST. SKIN JAUNDICE. DENIES PAIN AT THIS TIME. ON TELE #7. WILL CONTINUE TO MONITOR.
--- NOTE | 2019-01-01 05:51 | NUR ---
PATIENT AWAKE IN BED, WATCHING TV. RESPIRATION EVEN AND UNLABORED, ON ROOM AIR. ONGOING 0.9% NS AT 50 CC/HR INFUSING WELL AT THE RIGHT FOREARM. DENIES PAIN AT THIS TIME. ASSISTED WITH NEEDS. SAFETY OBSERVED. PLACED BED IN THE LOWEST POSITION. PLACED CALL LIGHT WITHIN REACH AT ALL TIMES.
[2019-01-01 06:10] VITALS: BP 148/74
[2019-01-01 06:40] LABS: CALCIUM 8.8 mg/dL (8.5-10.1); CARBON DIOXIDE 19.5 mmol/L (21-32); CHLORIDE SERUM 110 mmol/L (98-107); CREATININE SERUM 1.1 mg/dL (0.7-1.3); GFR1 > 60 mL/min; GLUCOSE SERUM 135 mg/dL (74-106); MAGNESIUM 2.4 mg/dL (1.8-2.4); PHOSPHOROUS 2.8 mg/dL (2.5-4.9); POTASSIUM SERUM 3.2 mmol/L (3.5-5.1); SODIUM SERUM 141 mmol/L (136-145)
[2019-01-01 07:22] LABS: PLATELET COUNT 317 x10^3mcL (130-400)
[2019-01-01 07:28] LABS: RED CELL DISTRIBUTION WIDTH 18.3 % (11.5-14.5)
--- NOTE | 2019-01-01 07:30 | NUR ---
THE PATIENT AWAKE AND ORIENTED TO PERSON, PLACE AND AT THIS TIME. PATIENT DENIED NAUSEA/VOMITING OR SHORTNESS OF BREATH. ALSO, PATIENT DENIED PAIN. PATIENT WITH GENERALIZED WEAKNESS. TELE # 7 READS SINUS RHYTHMS AT THIS TME. IVF NS VIA H/L TO RFA. BLE WERE ELEVATED ON PILLOWS. WILL ASSIST THE PATIENT TO TURN IN BED. CALL LIGHT WITHIN REACH. SIDE RAILS UP X3 AND PADDED. BED WAS AT LOWEST POSITION AND ALARM WAS ON.
[2019-01-01 08:50] VITALS: BP 145/75
[2019-01-01 09:09] LABS: BAND NEUTROPHIL 5 % (0-10); BASOPHIL 0 % (0-2); MONOCYTE 3 % (0-7); SEGMENTED NEUTROPHILS 92 % (37-75)
[2019-01-01 09:10] LABS: rbc morphology (normal/abnorm) ABNORMAL (NORMAL); target cell (codocyte) 2+
[2019-01-01 09:11] LABS: PLATELET MORPHOLOGY PLATELETS NORMAL
--- NOTE | 2019-01-01 09:44 | NUR ---
DR. CARVAJAL AND THE TEAM WERE MAKING ROUND TO SEE THE PATIENT. THE CARE PLAN WAS DISCUSSED WITH THE PATIENT AND HIS GIRLFRIEND.
[2019-01-01 12:00] VITALS: BP 119/68
--- NOTE | 2019-01-01 12:25 | NUR ---
PT AT BEDSIDE TO SEE THE PATIENT.
[2019-01-01 17:00] VITALS: BP 137/70
--- NOTE | 2019-01-01 18:44 | NUR ---
THE PATIENT WAS RESTING IN BED WITHOUT DISTRESS NOTED AT THIS TIME. PATIENT WITH GENERALIZED WEAKNESS; ASSISTED WITH ADLS. PATIENT INCONTINENT URINE AT TIMES.
--- NOTE | 2019-01-01 19:30 | NUR ---
PT IS DROWSY BUT A/O x4. ON TELE #7, NSR WITH ELEVATED T WAVE. PULSES PRESENT. EDMEA NOTED ON CORNELIA ANKLES. LUNGS CLEAR IN ALL FEILDS. ON RA, DENIES ANY SOB. EQUAL CHEST RISE AND FALL. BOWEL SOUNDS PRESENT. ABD SEMI FIRM AND DISTENDED. DENIES ANY ABD DISTRESS. SKIN WARM AND INTACT, JAUNDICE. DENIES PAIN AT THIS TIME. IV ON RFA INTACT AND PATENT. FLUIDS RUNNING PER EMAR. NO SIGN OF INFILTRTION OR IRRITATION. BED IS AT LOWEST SETTING. CALL LIGHT WITHIN REACH. BED ALARM IS ON. SIDE RAILS UP x2 FOR PT SAFETY. [facility]
[2019-01-01 20:28] VITALS: BP 128/68
--- NOTE | 2019-01-02 00:50 | NUR ---
PT IS RESTING IN BED WITH BOTH EYES CLOSED. BREATHING EVEN AND UNLABORED. NO SIGN OF DISTRESS NOTED. IV INTACT AND PATENT. BED AT LOWEST SETTING. CALL LIGHT IN HAND. WILL CONTINUE TO MONITOR.
[2019-01-02 05:55] VITALS: BP 138/75
[2019-01-02 06:01] LABS: PLATELET COUNT 326 x10^3mcL (130-400)
--- NOTE | 2019-01-02 06:34 | NUR ---
PT RESTING IN BED. DENIES ANY DISTRESS. NO ACUTE EVENT OCCURED AT NIGHT. IV INTACT. BED IS AT LOWEST SETTING. CALL LIGHT WITHIN REACH. WILL ENDORSE TO AM NURSE.
[2019-01-02 06:35] LABS: CALCIUM 8.7 mg/dL (8.5-10.1); CARBON DIOXIDE 19.8 mmol/L (21-32); CHLORIDE SERUM 112 mmol/L (98-107); GFR1 > 60 mL/min; GLUCOSE SERUM 131 mg/dL (74-106); MAGNESIUM 2.1 mg/dL (1.8-2.4); PHOSPHOROUS 2.7 mg/dL (2.5-4.9); POTASSIUM SERUM 3.3 mmol/L (3.5-5.1); SODIUM SERUM 143 mmol/L (136-145)
--- NOTE | 2019-01-02 07:20 | NUR ---
PT AWAKE, ALERT, ORIENTED, RESPONSIVE TO COMMANDS. PROVIDED COMFORT. EFFORTLESS BREATHING ON ROOM AIR. IV INFUSING WELL TO RFA#22. BED IN LOWEST POSITION, CALL LIGHT WITHIN REACH. DR. AVALOS AT BEDSIDE DISCUSSING PLAN OF CARE WITH SIGNIFICANT OTHER.
[2019-01-02 07:30] VITALS: BP 123/73
--- NOTE | 2019-01-02 07:50 | NUR ---
PT ASSISTED TO BEDSIDE CHAIR. MAXIMUN ASSIST. TOLERATED FAIRLY. TOLERATING DIET WELL. CALL LIGHT WITHIN REACH.
[2019-01-02 08:39] LABS: RED CELL DISTRIBUTION WIDTH 18.3 % (11.5-14.5)
[2019-01-02 12:04] LABS: BAND NEUTROPHIL 11 % (0-10); BASOPHIL 0 % (0-2); MONOCYTE 7 % (0-7); SEGMENTED NEUTROPHILS 78 % (37-75)
[2019-01-02 12:07] LABS: PLATELET MORPHOLOGY GIANT PLATELET SEEN; burr cell (echinocyte) 1+; ovalocyte/elliptocyte 1+; rbc morphology (normal/abnorm) ABNORMAL (NORMAL); target cell (codocyte) 2+; tear drop cell (dacryocyte) 1+
[2019-01-02 12:30] VITALS: BP 146/80
--- NOTE | 2019-01-02 13:00 | NUR ---
PT TRANSFERRED TO BEDSIDE CHAIR FOR LUNCH, TOLERATING WELL. DENIES PAIN. FAMILY AT BEDSIDE.
--- NOTE | 2019-01-02 17:00 | NUR ---
PT SLEEPING AT MOMENT. EFFORTLESS BREATHING ON ROOM AIR, SYMMETRICAL CHEST RISE. NO S/S OF PAIN. IV INFUSING WELL TO RFA#22. BED IN LOWEST POSITION, CALL LIGHT WITHIN REACH. FAMILY AT BEDSIDE.
--- NOTE | 2019-01-02 17:34 | NUR ---
P.T. NOTES Pt AWAKE IN BED, SISTERS & SBROWBM-GP-AFA IN ROOM & SUPPORTIVE; DECLINED W/ P.T.; REVIEWED HEP; Pt STATES HE WANTS TO SHOWER, & EAT DINNER; REFERRED TO NURSE; SISTERS EMOTIONAL; APPRECIATIVE; CALL KHAN, PHONE, TABLE IN REACH; FF UP TOMORROW.
[2019-01-02 17:41] VITALS: BP 131/69
[2019-01-02] MEDS ORDERED: VANCOCIN125 MG PO (18:30)
[2019-01-02] MEDS ORDERED: IPRATROPIUM BROM3 M2 HHN (18:31)
[2019-01-02] MEDS ORDERED: LAC30L PO (18:32)
[2019-01-02] MEDS ORDERED: TEN50 PO (18:32)
[2019-01-02] MEDS ORDERED: TYL325 PO (18:32)
[2019-01-02] MEDS ORDERED: FER300 PO (18:32)
[2019-01-02] MEDS ORDERED: GUAIATUSSIN AC L5 ML PO (18:33)
[2019-01-02] MEDS ORDERED: PROT40I IV (18:34)
[2019-01-02] MEDS ORDERED: ZOFI IV (18:34)
[2019-01-02] MEDS ORDERED: COL100 PO (18:34)
[2019-01-02] MEDS ORDERED: PRE20 PO (18:35)
[2019-01-02] MEDS ORDERED: D-10001 TAB PO (18:36)
[2019-01-02] MEDS ORDERED: THI100 PO (18:36)
[2019-01-02] MEDS ORDERED: FOL1 PO (18:36)
[2019-01-02] MEDS ORDERED: THERA TABLET400 MCG PO (18:37)
[2019-01-02 18:56] VITALS: BP 131/69
--- NOTE | 2019-01-02 19:28 | NUR ---
REPORT FROM NEDA,PATIENT TO GO TO [facility],HIGHER LEVEL OF CARE.ALL PAPERWORKS DONE PER REPORT.WILL JUST REMOVED TELE WHEN DC.FAMILY AT BEDSIDE.AWARE OF THIS TRANSFER.
--- NOTE | 2019-01-02 19:59 | NUR ---
DISCHARGE INSTRUCTIONS GIVEN TO PT, AND SISTER AT BEDSIDE. BOTH VERBALIZED UNDERSTANDING AND ARE IN AGREEMENT WITH TRANSFER TO [facility]. REPORT CALLED TO TELEMETRY UNIT AT [place]. REPORT GIVEN TO IRMA PARKER. ALL QUESTIONS AND CONCERNS ADDRESSED. CARE ENDORSED TO MELT HOUSE SUPERVISOR NURSE.
[2019-01-02 20:08] VITALS: BP 135/71
--- NOTE | 2019-01-02 20:17 | NUR ---
ALL [employer] REMOVED,TELE 7 REMOVED NOW,[employer]ANG[employer]AGE INSTRUCTOR COMING ANYTIME.FAMILY MEMBERS AT BEDSIDE.A LOT OF THEM.
--- NOTE | 2019-01-02 21:01 | NUR ---
AMBULANCE HERE [facility].ALL PAPERWORKS GIVEN.ONE FAMILY MEMBER TO RIDE WITH THEM,SOME WILL FOLLOW.TELE 7 REMOVED AND RETURNED TO [facility].
--- NOTE | 2019-01-02 21:08 | NUR ---
LOADING THE PATIENT NOW IN THE STRETCHER IN STABLE CONDITION.
== END 2019-01-02 21:38 | disposition short-term general hospital (02) | DRG 720 ==
LOC: ED 18:55 → DU 12-24 00:10
PROVIDERS: Emergency Medicine; Family Medicine; ADMIT Internal Medicine
DX: A41.9 Sepsis, unspecified organism (principal); N17.0 Acute kidney failure with tubular necrosis; E43 Unspecified severe protein-calorie malnutrition; G92 Toxic encephalopathy; J15.6 Pneumonia due to other Gram-negative bacteria; D68.69 Other thrombophilia; K85.20 Alcohol induced acute pancreatitis without necrosis or infection; E83.42 Hypomagnesemia; K70.31 Alcoholic cirrhosis of liver with ascites; E83.51 Hypocalcemia; E87.1 Hypo-osmolality and hyponatremia; E87.6 Hypokalemia; I10 Essential (primary) hypertension; T51.0X1A Toxic effect of ethanol, accidental (unintentional), initial encounter; Y90.0 Blood alcohol level of less than 20 mg/100 ml; R65.20 Severe sepsis without septic shock; R74.0 Nonspecific elevation of levels of transaminase and lactic acid dehydrogenase [LDH]; K81.9 Cholecystitis, unspecified; Z60.2 Problems related to living alone; F10.220 Alcohol dependence with intoxication, uncomplicated; F10.239 Alcohol dependence with withdrawal, unspecified; F43.10 Post-traumatic stress disorder, unspecified; Z68.26 Body mass index [BMI] 26.0-26.9, adult; Z90.81 Acquired absence of spleen; Z81.1 Family history of alcohol abuse and dependence; Z71.41 Alcohol abuse counseling and surveillance of alcoholic; Z79.899 Other long term (current) drug therapy; Y92.89 Other specified places as the place of occurrence of the external cause
CPT/HCPCS: 83880; 84439; 85060; 87046; 87046-59; 97110-GP; 97116-GP; 97530-GP; A9547; C9113; G0480; J1956; J2060; J2405; J2543; J2920; J3370; J3475; J3480; J3490; J7030; J7620; Q0092